=== PATIENT | female | born 1980 | race Caucasian/White ===

== ENCOUNTER 2018-07-27 21:41 | Emergency (ER) | payer MEDICAID ==
[~2018-07-27 21:41] MED LIST: ACET-2031 PO; ADHD MED; ALBU8.5H IH; AMOX-362 PO; CLON0.1T14; CYCL10TA29 PO; DOCU-416 PO; IBUP600T22 PO; LEVO500T83 PO; LIS70PT PO; LOR5/325 PO; MEDR10TA57 PO; OXYC-373 PO; OXYC-854 PO; OXYC-865 PO; PHEN100T27 PO; PROM-110 PO; PROM12.557 PO; QUET1TAB PO; QUET25TA30 PO; TRAM-420 PO
--- NOTE | 2018-07-27 21:42 | ER Report ---
History and Physical Time Seen By MD: 21:40 HPI/ROS CHIEF COMPLAINT: Allergic reaction HISTORY OF PRESENT ILLNESS: 38 roll female presents a ambulatory to the ER. She is developing hives in her scalp. The back of her neck and upper chest. She's diffuse hives and itching. She notes throat closing sensation. She notes diffi culty breathing. She is unsure what she is exposed to. She's never had a reaction before. She does not have an EpiPen. She states she's been having mild allergic reactions for several weeks. She is unsure what she is allergic to. REVIEW OF SYSTEMS: Respiratory: No cough, no dyspnea. Cardiovascular: No chest pain, no palpitations. Gastrointestinal: No vomiting, no abdominal pain. Musculoskeletal: No back pain. Allergies: Coded Allergies: amoxicillin (Verified Allergy, Unknown, 07/27/18) NSAIDS (Non-Steroidal Anti-Inflamma (Verified Adverse Reaction, Mild, NAUSEA/VOMITING, 07/27/18) Home Meds Active Scripts Methylprednisolone (METHYLPREDNISOLONE) 4 Mg Tab.ds.pk, 4 MG PO DIRECTED for prevention of allergic reactio, #1 TAB Prov:JT BHATIA DO 07/27/18 Reported Medications Promethazine Hcl (PROMETHAZINE HCL) 25 Mg Tablet, 25 MG PO Q8H PRN for NAUSEA, TAB 10/14/15 Quetiapine Fumarate (SEROQUEL) 25 Mg Tablet, 25 MG PO QDAY 12/20/14 Discontinued Scripts Prednisone (PREDNISONE) 20 Mg Tablet, 20 MG PO QDAY for prevent allergic reaction, #9 2 by mouth daily for 3 days then 1 by mouth daily for 3 days Prov:JT BHATIA DO 07/27/18 Past Medical/Surgical History History of transient, anxiety, pelvic pain, tubal ligation, dysfunctional uterine bleeding Reviewed Nurses Notes: Yes Old Medical Records Reviewed: Yes Hx Smoking: Yes (1/2 PPD) Smoking Status: Current: Every Day Smoker Exposure to Second Hand Smoke?: Yes Hx Substance Use Disorder: Yes Hx Alcohol Use: No Constitutional Vital Sign - Last 24 Hours 07/27/18 07/27/18 07/27/18 07/27/18 21:41 21:42 21:48 21:48 Pulse ??? 91 Resp 22 B/P (MAP) 140/95 (110) Pulse Ox 94 O2 Delivery Room Air 07/27/18 07/27/18 07/27/18 6/21/19 21:56 21:56 22:00 22:03 Temp 97.8 Pulse 86 84 84 Resp 29 20 20 B/P (MAP) 132/89 (103) 132/89 Pulse Ox 98 94 O2 Delivery Room Air 07/27/18 07/27/18 07/27/18 07/27/18 22:11 22:26 22:30 22:41 Pulse 82 90 85 Resp 12 50 15 B/P (MAP) 131/77 (95) Pulse Ox 98 95 95 07/27/18 07/27/18 07/27/18 22:56 23:00 23:11 Pulse 85 ??? Resp 43 B/P (MAP) 116/84 (95) Pulse Ox 95 Physical Exam Vital signs stable, afebrile, pulse ox normal General Appearance: The patient is alert, has no immediate need for airway protection and no current signs of toxicity. Moderate distress, flushing of scalp, neck, upper chest and back HEENT: Pupils equal and round no injection. TMs normal, oropharynx with moderate erythema, trace edema Respiratory: Chest is non tender, lungs are clear to auscultation., Faint [place] wheezing noted throughout lung turpin Cardiac: regular rate and rhythm Gastrointestinal: Abdomen is soft and non tender, no masses, bowel sounds normal. Musculoskeletal: Neck: Neck is supple and non tender. No lymphadenopathy Extremities have full range of motion and are non tender. Skin: Diffuse urticaria primarily scalp, neck, chest, upper back DIFFERENTIAL DIAGNOSIS: After history and physical exam differential diagnosis was considered for allergic reaction, anaphylaxis, urticaria, hives Medical Decision Making ED Course/Re-evaluation ED Course Patient was admitted to an examination room. H&P was done. The differential diagnoses was considered. With acute allergic reaction. No fátima signs of anaphylaxis. Patient's treated with IV Solu-Medrol, Benadryl, Pepcid and albuterol nebulizer. Patient improves, but then starts to rebound. A 2nd dose of Benadryl 25 mg was administered. She reports feeling much better but still been quite itchy. Patient is to go to work. She is requesting to be discharged. She's given a prescription for prednisone. Patient advised to continue Benadryl 25-50 mg every 6-8 hours as needed. Patient cautioned return to the ER for any worsening. Should advised to follow-up with an ben day artist in [place] or [place]. Decision to Disposition Date: Jul 27, 2018 Decision to Disposition Time: 23:03 Depart Departure Latest Vital Signs Vital Signs Date Time Temp Pulse Resp B/P (MAP) Pulse Ox O2 Delivery O2 Flow Rate FiO2 07/27/18 23:11 ??? 07/27/18 23:00 116/84 (95) 07/27/18 22:56 43 95 07/27/18 22:03 97.8 Room Air Impression: Primary Impression: Allergic reaction Additional Impression: Urticaria Condition: Improved Disposition: HOME OR SELF-CARE New Scripts Methylprednisolone (METHYLPREDNISOLONE) 4 Mg Tab.ds.pk 4 MG PO DIRECTED for prevention of allergic reactio, #1 TAB Prov: JT BHATIA DO 07/27/18 Patient Instructions: General Allergic Reaction (ED), Urticaria (ED) Additional Instructions: Use Benadryl 25 mg 1-2 tablets every 6 hours as needed for itching Follow-up with primary care if unimproved in 3-5 days You may need to see an ben day artist to continue to have these reactions. He will have to go to either [place] or [place], since there are no ben day artist in [place] Problem Qualifiers Primary Impression: Allergic reaction Encounter type: initial encounter Qualified Codes: T78.40XA - Allergy, unspecified, initial encounter JT BHATIA DO Jul 27, 2018 21:42
[2018-07-27] MEDS ORDERED: ALBUTEROL/IPRATROPIUM 3 ML NEB ONE (21:44)
[2018-07-27] MEDS ORDERED: diphenhydrAMINE 50 MG/ML VIAL IVP ONE ×2 (21:45→22:35)
[2018-07-27] MEDS ORDERED: NS(*) 0.9% 1000 ML BAG 1,000 ML IV ONE (21:45)
[2018-07-27] MEDS: FAMOTIDINE 20 MG TAB PO ONE (21:45)
[2018-07-27] MEDS ORDERED: methylPREDNIS SUCC 125 MG/2ML IVP ONE (21:45)
[2018-07-27] MEDS ORDERED: ALBUTEROL/IPRATROPIUM 3 ML NEB NEB ONE (21:45)
[2018-07-27] MEDS ORDERED: FAMOTIDINE(*) 20MG/50ML PREMIX 50 ML IVPB ONE (22:10)
[2018-07-27] MEDS ORDERED: PRED20TA6 PO (22:20)
[2018-07-27 23:00] VITALS: BP 116/84
[2018-07-27] MEDS ORDERED: METH4TAB66 PO (23:03)
== END 2018-07-27 23:06 | disposition home or self-care (01) ==
LOC: ER 22:03
DX: T78.40XA Allergy, unspecified, initial encounter (principal); L50.9 Urticaria, unspecified
CPT/HCPCS: 94640; 96361; 96374; 96375; 96376; 99284; J1200; J2930; J7030; J7620

== ENCOUNTER → 2018-08-07 | Outpatient (CLI) | payer MEDICAID ==
[~2018-08-07] MED LIST changes: +FEXO-72 PO; +METH4TAB66 PO; +OLO2ODPT OU; +PRED20TA6 PO; +RANI-325 PO
== END ==
LOC: LAB 07:34
PROVIDERS: ATTEND Physician Assistant
DX: J30.9 Allergic rhinitis, unspecified (principal); L50.9 Urticaria, unspecified
CPT/HCPCS: 36415; 86003